=== PATIENT | female | born 1990 | race Caucasian/White ===

== ENCOUNTER 2016-09-01 13:37 | Emergency (ER) | payer OTHER ==
[~2016-09-01] VITALS: Ht 162.6 cm; Wt 124.4 kg
[~2016-09-01 13:37] MED LIST: ASPIR 8181 M1 PO; MACROBID100 MG PO; OXCARBAZEPINE600 MG PO; PRENATAL TABLE1 EAC3 PO; PROZAC20 MG PO; SPRINTEC1 EACH PO; TRILEPTAL600 MG PO; TYLENOL EXTRA500 MG PO
[2016-09-01] MEDS ORDERED: AUGMENTIN875 MG PO (15:24)
[2016-09-01] MEDS ORDERED: PERCOCET 5/31 TABLET PO (15:24)
[2016-09-01 15:41] VITALS: BP 145/112
== END 2016-09-01 16:50 | disposition home or self-care (01) ==
LOC: EME 13:37
DX: S61.411A Laceration without foreign body of right hand, initial encounter (principal); W54.0XXA Bitten by dog, initial encounter; Z23 Encounter for immunization; Z87.891 Personal history of nicotine dependence
CPT/HCPCS: 73130; 99281; 99284